=== PATIENT | female | born 1960 | race Caucasian/White ===

== ENCOUNTER 2020-02-08 10:57 | Outpatient (CLI) | payer BC, SELFPAY ==
[2020-02-08 11:22] LABS: Basophils Percent Auto 0.3 % (0.2-1.2); Hematocrit 39.7 % (37.0-47.0); Hemoglobin 12.8 g/dL (12.0-15.0); Immature Granulocyte Absolute 0.01 K/mm3 (0.00-0.031); Immature Granulocyte Percent A 0.3 % (0-0.5); Lymphocytes Absolute Auto 0.21 K/mm3 (0.9-3.2); Lymphocytes Percent Auto 5.8 % (18.3-44.2); Mean Corpuscular HGB Conc 32.2 g/dl (32-36); Mean Corpuscular Hemoglobin 28.9 pg (26-34); Mean Corpuscular Volume 89.6 fl (80-100); Mean Platelet Volume 9.9 fl (7.4-10.4); Monocytes Absolute Auto 0.5 K/mm3 (0.1-0.6); Monocytes Percent Auto 12.8 % (2.6-8.5); Neutrophils Absolute Auto 2.9 K/mm3 (1.3-6.7); Neutrophils Percent Auto 80.8 % (45.5-73.1); Platelet Count Result 244 k/mm3 (150-375); Red Blood Count 4.43 M/mm3 (4.2-5.4); Red Cell Distribution Width 13.8 % (11.5-14.5); White Blood Count 3.6 K/mm3 (4.5-10.0)
[2020-02-08 11:31] LABS: Potassium 3.9 mmol/L (3.4-5.0)
[2020-02-08 11:47] LABS: Alanine Aminotransferase 14 U/L (4-35); Albumin Level 4.5 g/dL (3.5-5.1); Alkaline Phosphatase 76 U/L (38-126); Aspartate Amino Transferase 20 U/L (14-36); Bilirubin,Total 0.6 mg/dL (0.2-1.3); Blood Urea Nitrogen 15 mg/dL (7-17); Calcium 10.1 mg/dL (8.4-10.2); Carbon Dioxide 30 mmol/L (22-30); Chloride 104 mmol/L (98-107); Estimated Glomerular Filt Rate 57; Glucose 94 mg/dL (65-105); Sodium 139 mmol/L (137-145)
[2020-02-08 11:56] LABS: Lithium 0.7 mmol/L (0.6-1.2)
[2020-02-14 00:55] LABS: Carbamazepine Tegretol 2.1 mcg/mL (4.0-12.0)
== END 2020-02-08 10:58 | disposition home or self-care (01) ==
LOC: ANHLAB 11:04
PROVIDERS: PCP Family Medicine
DX: F31.9 Bipolar disorder, unspecified (principal)
CPT/HCPCS: 36415; 80053; 80156; 80178; 85025

== ENCOUNTER 2020-03-20 14:41 | Outpatient (CLI) | payer BC, SELFPAY ==
[2020-03-20 16:02] LABS: Basophils Percent Auto 0.3 % (0.2-1.2); Hematocrit 37.7 % (37.0-47.0); Immature Granulocyte Absolute 0.01 K/mm3 (0.00-0.031); Immature Granulocyte Percent A 0.3 % (0-0.5); Lymphocytes Absolute Auto 0.27 K/mm3 (0.9-3.2); Lymphocytes Percent Auto 8.6 % (18.3-44.2); Mean Corpuscular HGB Conc 31.8 g/dl (32-36); Mean Corpuscular Hemoglobin 29.3 pg (26-34); Mean Platelet Volume 10.1 fl (7.4-10.4); Monocytes Absolute Auto 0.4 K/mm3 (0.1-0.6); Monocytes Percent Auto 13.4 % (2.6-8.5); Neutrophils Absolute Auto 2.4 K/mm3 (1.3-6.7); Neutrophils Percent Auto 77.4 % (45.5-73.1); Platelet Count Result 243 k/mm3 (150-375); Red Cell Distribution Width 14.1 % (11.5-14.5); White Blood Count 3.1 K/mm3 (4.5-10.0)
[2020-03-20 17:19] LABS: Alanine Aminotransferase 11 U/L (4-35); Albumin Level 4.2 g/dL (3.5-5.1); Alkaline Phosphatase 76 U/L (38-126); Aspartate Amino Transferase 17 U/L (14-36); Bilirubin,Total 0.5 mg/dL (0.2-1.3); Blood Urea Nitrogen 15 mg/dL (7-17); Calcium 9.7 mg/dL (8.4-10.2); Carbon Dioxide 30 mmol/L (22-30); Chloride 106 mmol/L (98-107); Estimated Glomerular Filt Rate 57; Glucose 92 mg/dL (65-105); Potassium 4.5 mmol/L (3.4-5.0); Sodium 141 mmol/L (137-145)
[2020-03-20 18:03] LABS: Add Urine Microscopic? YES; Appearance Urine Clear (Clear); Bacteria Urine Trace /hpf; Bilirubin Urine Negative (Negative); Blood Urine Negative (Negative); Color Urine Yellow (Yellow); Glucose Urine UA Negative (Negative); Hyaline Casts Urine 15-19 /lpf; Ketones Urine Trace mg/dL (Negative); Leukocyte Esterase Ur 3+ LEU/UL (Negative); Mucus Urine Heavy /lpf; Nitrate Urine Negative (Negative); Protein Urine 1+ mg/dL (Negative); Specific Grav Ur 1.034 (1.001-1.035); Squamous Epithelial Cell Urine Many /hpf (Few)
== END 2020-03-20 14:42 | disposition home or self-care (01) ==
PROVIDERS: PCP Family Medicine
DX: G35 Multiple sclerosis (principal)
CPT/HCPCS: 36415; 80053; 81001; 85025

== ENCOUNTER 2020-08-25 14:32 | Outpatient (CLI) | payer BC, SELFPAY ==
[2020-08-25 15:41] LABS: Lithium 0.8 mmol/L (0.6-1.2)
[2020-08-29 00:53] LABS: Carbamazepine Tegretol 3.2 mcg/mL (4.0-12.0)
== END 2020-08-25 14:33 | disposition home or self-care (01) ==
PROVIDERS: Anesthesiology; PCP Family Medicine; Visit Provider Dentist
DX: Z01.818 Encounter for other preprocedural examination (principal); Z51.81 Encounter for therapeutic drug level monitoring
CPT/HCPCS: 36415; 80156; 80178

== ENCOUNTER 2020-08-31 01:35 | Outpatient (CLI) | payer BC, SELFPAY ==
[2020-08-31 20:39] LABS: SARS-CoV-2 RNA PCR Negative
== END 2020-08-31 01:36 | disposition home or self-care (01) ==
LOC: ANHCOVIDDT 01:35
PROVIDERS: Internal Medicine Critical Care Medicine; PCP Family Medicine; Visit Provider Dentist
DX: Z01.812 Encounter for preprocedural laboratory examination (principal); Z11.59 Encounter for screening for other viral diseases
CPT/HCPCS: 87635; C9803; U0003

== ENCOUNTER 2020-09-03 00:15 | Day surgery (SDC) | payer BC, SELFPAY ==
[2020-08-20 14:15] VITALS: BMI 36.3
[2020-09-03] VITALS (9 sets, daily range): BP systolic 105–221; BP diastolic 58–110; PULSE 59–73; RESP 10–20; TEMP 36.1–36.3; O2SAT 99–100
--- NOTE | 2020-09-03 08:12 | WPDHPUPDATE1 ---
History and Physical Update Update Date/Time: 09/03/20 08:12 History and Physical has been reviewed, including an updated exam of the patient. There are NO changes in the patient's condition. Risks, benefits, and alternatives have been discussed and questions answered. Patient agrees to proceed with procedure.
--- NOTE | 2020-09-03 08:12 | PM.IMHP ---
H&P: HPI History of Present Illness Date/Time: 09/03/20 08:12 Chief complaint: Dental Caries Narrative: Sagrario Hernandez is a 60 year old female with nonrestorable teeth PMFSH Past Medical History Medical History (Updated 09/03/20 @ 08:13 by Moo Elizalde DMD) Bipolar disorder Hypothyroidism Migraine Multiple sclerosis Family History Family History Father Hypertension Family history of arthritis Mother Family history of malignant neoplasm of skin Social History Social History Smoking status: Never smoker Second hand tobacco smoke exposure: Yes Alcohol intake: never Spiritual care concerns: No Meds Home Medications and Allergies Home Medications Medication Instructions Recorded Confirmed Type levothyroxine 75 mcg capsule 75 mcg PO DAILY #90 cap 06/30/20 09/03/20 Rx carbamazepine 100 mg 200 mg PO DAILY cap 08/12/20 09/03/20 History capsule,extended release [id number] fingolimod 0.5 mg capsule 0.5 mg PO DAILY 08/12/20 09/03/20 History hydroxyzine HCl 25 mg tablet 25 mg PO QID PRN 08/12/20 09/03/20 History lamotrigine 200 mg tablet 200 mg PO BID 08/12/20 09/03/20 History sumatriptan succinate 100 mg tablet See Rx Instructions PO .COMPLEX PRN 08/12/20 09/03/20 History ascorbic acid (vitamin C) [Vitamin 500 mg PO DAILY 08/20/20 09/03/20 History C] biotin 10,000 mcg PO DAILY 08/20/20 09/03/20 History cetirizine [Zyrtec] 10 mg PO DAILY 08/20/20 09/03/20 History cholecalciferol (vitamin D3) 25 mcg PO DAILY 08/20/20 09/03/20 History [Vitamin D3] cyanocobalamin (vitamin B-12) 5,000 mcg SUBLINGUAL DAILY 08/20/20 09/03/20 History [Vitamin B-12] lithium carbonate 150 mg PO QPM 08/20/20 09/03/20 History lithium carbonate 300 mg PO DAILY 08/20/20 09/03/20 History Allergies Allergy/AdvReac Type Severity Reaction Status Date / Time AMOXICILLIN TRIHYDRATE Allergy Unknown Unknown Uncoded 08/20/20 13:56 Reaction POTASSIUM CLAVULANATE Allergy Unknown Unknown Uncoded 08/20/20 13:56 Reaction Assessment and Plan Assessment and plan (1) Non-restorable tooth: Code(s): K08.89 - Other specified disorders of teeth and supporting structures Status: Acute Assessment and Plan: full mouth extractions
[2020-09-03] MEDS: LACTATED RINGERS 1,000 ML 30 ML IV CONT ×2 (08:18→10:30)
--- NOTE | 2020-09-03 08:34 | WPDANESEPPF ---
Anes - Initial Pre Proc Eval Procedure: Operation Date: 09/03/20 09:15 Proposed Procedures p Extraction Of Twenty Teeth - Moo Elizalde DMD Date/Time: 09/03/20 08:34 Surgeon: Moo Elizalde DMD Pre Op Diagnosis: Dental Caries Patient Data Age: 60 Gender: F Height: 5 ft 6 in Weight: 100.7 kg Last Vital Signs Temp 36.3 C L 09/03/20 08:20 Pulse 59 L 09/03/20 08:20 BP 150/76 H 09/03/20 08:20 Pulse Ox 100 09/03/20 08:20 Allergies Allergy/AdvReac Type Severity Reaction Status Date / Time AMOXICILLIN TRIHYDRATE Allergy Unknown Unknown Uncoded 08/20/20 13:56 Reaction POTASSIUM CLAVULANATE Allergy Unknown Unknown Uncoded 08/20/20 13:56 Reaction Home Medications Medication Instructions Recorded Confirmed Type levothyroxine 75 mcg capsule 75 mcg PO DAILY #90 cap 06/30/20 09/03/20 Rx carbamazepine 100 mg 200 mg PO DAILY cap 08/12/20 09/03/20 History capsule,extended release [id number] fingolimod 0.5 mg capsule 0.5 mg PO DAILY 08/12/20 09/03/20 History hydroxyzine HCl 25 mg tablet 25 mg PO QID PRN 08/12/20 09/03/20 History lamotrigine 200 mg tablet 200 mg PO BID 08/12/20 09/03/20 History sumatriptan succinate 100 mg tablet See Rx Instructions PO .COMPLEX PRN 08/12/20 09/03/20 History ascorbic acid (vitamin C) [Vitamin 500 mg PO DAILY 08/20/20 09/03/20 History C] biotin 10,000 mcg PO DAILY 08/20/20 09/03/20 History cetirizine [Zyrtec] 10 mg PO DAILY 08/20/20 09/03/20 History cholecalciferol (vitamin D3) 25 mcg PO DAILY 08/20/20 09/03/20 History [Vitamin D3] cyanocobalamin (vitamin B-12) 5,000 mcg SUBLINGUAL DAILY 08/20/20 09/03/20 History [Vitamin B-12] lithium carbonate 150 mg PO QPM 08/20/20 09/03/20 History lithium carbonate 300 mg PO DAILY 08/20/20 09/03/20 History Patient hx anesthesia problems: none Family hx anesthesia problems: none PMFSH Past Medical History Medical History Bipolar disorder Hypothyroidism Migraine Multiple sclerosis Family History Family History Father Hypertension Family history of arthritis Mother Family history of malignant neoplasm of skin Social History Social History Smoking status: Never smoker Second hand tobacco smoke exposure: Yes Alcohol intake: never Spiritual care concerns: No Anes - Eval Final PreProcedure Day of Procedure 09/03/20 08:34 Patient weight: obese Heart: regular rate and rhythm Lungs: clear to auscultation Airway: Mallampati scale class II Neurological: alert and oriented Last oral intake: >/= 8 hours ASA classification: III Emergent: no Anesthetic plan: proceed Anesthesia type and monitoring: general ETT and standard monitoring Informed Consent: The patient's anesthetic plan and its attendant risks and benefits were discussed with the patient/family/POA. Questions were solicited and answers provided to the satisfaction of the patient/family/POA.
[2020-09-03] MEDS: OXYMETAZOLINE HCL 0.05% NAS 15 ML BTL (*BKC) 2 SPRAY NASAL ×2 (09:02→09:03)
[2020-09-03] MEDS: LIDOCAINE 2%-EPI (FOR DENTAL BLOCK) 1.7 ML CARTRIDGE INFILTRATE (09:35)
--- NOTE | 2020-09-03 10:16 | SUR.OPER ---
EBL:20cc
--- NOTE | 2020-09-03 10:27 | PM.PROC ---
Procedure Note - Detailed Date of procedure: 09/03/20 Pre-op diagnosis: Dental Caries Surgeon: Desiree Roblero of the anesthesia service who induced a general anesthetic. Patient was draped in the usual manner for an intraoral surgical procedure. Oral cavity was suctioned free of debris and throat pack was placed. Local anesthetic administered totaling 5cc. Fifteen blade was used to make a sulcular incision in the maxilla and a full-thickness flaps elevated to the buccal. All remaining maxillary teeth removed using elevator and forceps technique without complication. Sockets curetted free of debris and irrigated with copious amounts of sterile saline. Alveoloplasty was completed and the wound was irrigated again. Tissue was closed using 4 0 chromic gut suture in interrupted and continuous fashion. Attention was turned to the mandible where an incision was made around the necks of the teeth and a full-thickness flaps elevated to the buccal. All teeth removed using a forceps technique without complication. Alveoloplasty was completed using a rongeur. Wound was irrigated and then closed using 4 0 chromic gut suture in interrupted fashion. Oral cavity was suctioned free of debris and throat pack was removed. Because pack placed. Care the patient was turned to the anesthesia service who extubated the patient transferred to recovery in stable condition. Estimated blood loss 20cc complications none. Preoperative diagnosis nonabsorbable dentition. Postop diagnosis same.
[2020-09-03] MEDS: hydrALAZINE HCL 20 MG/ML VIAL 5 MG IV PUSH (11:42)
--- NOTE | 2020-09-03 11:44 | SUR.PHASEII ---
BP ELEVATED 220/110, TAKEN MANUALLY; DR. CASON NOTIFIED WHO ORDERED 5 MG HYDRALAZINE IVP. PT DENIES BOLDEN. ALERT, ORIENTED X 3.
--- NOTE | 2020-09-03 11:56 | SUR.PHASEII ---
[employer]; FEET STRENGTH. NO FACIAL ASSYMETRY.
--- NOTE | 2020-09-03 12:19 | SUR.PHASEII ---
DR CASON AWARE OF BP 187/76 & HR 65. DR CASON STATES PT MAY BE DISCHARGED HOME. PT MEETS ANESTHESIA DISCHARGE CRITERIA.
== END 2020-09-03 12:40 | disposition home or self-care (01) ==
PROVIDERS: PCP Family Medicine; Visit Provider Dentist
PROC: (CPT 41899; principal; 2020-09-03 09:15)
DX: K02.9 Dental caries, unspecified (principal); E03.9 Hypothyroidism, unspecified; G35 Multiple sclerosis; F31.9 Bipolar disorder, unspecified; E66.9 Obesity, unspecified; Z68.35 Body mass index [BMI] 35.0-35.9, adult
CPT/HCPCS: 41874 ×4; 41899; A9270; J0330; J0360; J1100; J2250; J2405; J2704; J3010; J7120

== ENCOUNTER 2020-09-26 00:59 | Outpatient (CLI) | payer BC, SELFPAY ==
[2020-09-26 19:14] LABS: SARS-CoV-2 RNA PCR Negative
== END 2020-09-26 01:00 | disposition home or self-care (01) ==
LOC: ANHCOVIDDT 00:59
PROVIDERS: PCP Family Medicine; Visit Provider Internal Medicine Critical Care Medicine
DX: Z20.828 Contact with and (suspected) exposure to other viral communicable diseases (principal)
CPT/HCPCS: 87635; C9803; U0003

== ENCOUNTER 2020-09-29 07:45 | Outpatient (CLI) | payer BC, SELFPAY ==
--- NOTE | 2020-11-12 13:00 | WPDSLEEPSTUD ---
Sleep Study Date of Study: 09/29/20 Ordering Provider: Dr.Laura Molina Interpreting Physician: Sleep Study Type: Polysomnogram Height: 1.68 m Weight: 97.069 kg Body Mass Index: 34.5 Neck Circumference: 38.1 cm [place]: 18 Reason for Sleep Study Non refreshing sleep, daytime sleepiness and fatigue. Patient has comorbid conditions of depression and anxiety. Sleep History Non refreshing sleep and severe daytime hypersomnolence. PMFSH Past Medical History Medical History Bipolar disorder Hypothyroidism Migraine Multiple sclerosis Family History Family History Father Hypertension Family history of arthritis Mother Family history of malignant neoplasm of skin Social History Social History Smoking status: Never smoker Second hand tobacco smoke exposure: Yes Alcohol intake: never Spiritual care concerns: No Medications Home Medications Medication Instructions Recorded Confirmed Type carbamazepine 100 mg 200 mg PO DAILY cap 08/12/20 09/03/20 History capsule,extended release [id number] fingolimod 0.5 mg capsule 0.5 mg PO DAILY 08/12/20 09/03/20 History hydroxyzine HCl 25 mg tablet 25 mg PO QID PRN 08/12/20 09/03/20 History lamotrigine 200 mg tablet 200 mg PO BID 08/12/20 09/03/20 History sumatriptan succinate 100 mg tablet See Rx Instructions PO .COMPLEX PRN 08/12/20 09/03/20 History ascorbic acid (vitamin C) [Vitamin 500 mg PO DAILY 08/20/20 09/03/20 History C] biotin 10,000 mcg PO DAILY 08/20/20 09/03/20 History cetirizine [Zyrtec] 10 mg PO DAILY 08/20/20 09/03/20 History cholecalciferol (vitamin D3) 25 mcg PO DAILY 08/20/20 09/03/20 History [Vitamin D3] cyanocobalamin (vitamin B-12) 5,000 mcg SUBLINGUAL DAILY 08/20/20 09/03/20 History [Vitamin B-12] lithium carbonate 150 mg PO QPM 08/20/20 09/03/20 History lithium carbonate 300 mg PO DAILY 08/20/20 09/03/20 History levothyroxine 75 mcg capsule 75 mcg PO DAILY #90 cap 09/28/20 Rx Sleep Procedure overnight polysomnographic study Sleep Architecture total recording time 399 minutes, total sleep time 344 minutes, sleep efficiency 86.4 minutes, sleep latency 2.4 minutes, REM latency 91 minutes. Wake after sleep onset 52 minutes, stage N1 6.4%, N2 76.8%, N3 0%, REM sleep 16.8%. Supine sleep 96.5%, supine REM 14.2%. Respiratory Analysis AASM criteria used. Patient had 6 apneas, 1 obstructive and 5 centrals apnea index 1.0. There were 26 hypopneas with a hypopnea index of 4.5. Apnea-hypopnea index 5.6. Supine index 5.8, nonsupine index 0 REM index 18.6 non-REM index 2.9. Arousals Total arousals 84 with index of 12.6, spontaneous arousals 58, snores arousals 8, hypopnea arousals 5. Periodic Limb Movements Ninety-five leg movements with index of 16.5, 13 arousals with index of 2.0. There were no PLMS. Oximetry Data mean oxygen saturation 94, lowest saturation 88,SaO2<90-1.0Min Snoring Profile mild intermittent snoring. Cardiac Profile Normal sinus rhythm, mean heart rate 54, range 42 to 87 beats per minute. EEG Profile unremarkable EEG. Assessment and Plan Additional Plan this study shows presence of mild sleep disordered breathing with predominance during REM sleep. The patient did not qualify for a split night study. the patient reports very severe daytime sleepiness and has an [place] score of 18/24. given this severe hypersomnia it would be appropriate to consider a trial of CPAP therapy in this patient. If her sleep disorder is appropriately treated and the patient continues to have severe hypersomnolence, consideration should be given for a coexisting condition of central hypersomnolence. And the patient may require multiple sleep latency test to rule out possibility of narcolepsy or idiopathic hypersomnia.
[2020-11-12 13:24] VITALS: BMI 34.5
== END 2020-09-29 07:46 | disposition home or self-care (01) ==
LOC: ANHCSM 07:47
PROVIDERS: PCP Family Medicine; Visit Provider Family Medicine
DX: G47.33 Obstructive sleep apnea (adult) (pediatric) (principal)
CPT/HCPCS: 95810

== ENCOUNTER 2020-11-04 12:45 | Outpatient (CLI) | payer BC, SELFPAY ==
[2020-11-04 13:33] LABS: Alanine Aminotransferase 17 U/L (4-35); Albumin Level 4.4 g/dL (3.5-5.1); Alkaline Phosphatase 78 U/L (38-126); Anion Gap 3 mmol/L (8-16); Aspartate Amino Transferase 22 U/L (14-36); Bilirubin,Total 0.5 mg/dL (0.2-1.3); Blood Urea Nitrogen 15 mg/dL (7-17); Carbon Dioxide 33 mmol/L (22-30); Chloride 105 mmol/L (98-107); Estimated Glomerular Filt Rate > 60; Glucose 99 mg/dL (65-105); Potassium 4.4 mmol/L (3.4-5.0); Sodium 141 mmol/L (137-145)
[2020-11-04 16:10] LABS: Lithium 0.5 mmol/L (0.6-1.2)
[2020-11-07 05:35] LABS: Carbamazepine Tegretol 3.9 mcg/mL (4.0-12.0)
== END 2020-11-04 12:46 | disposition home or self-care (01) ==
PROVIDERS: PCP Family Medicine
DX: F31.9 Bipolar disorder, unspecified (principal)
CPT/HCPCS: 36415; 80053; 80156; 80178

== ENCOUNTER 2020-11-05 12:06 | Outpatient (CLI) | payer BC, SELFPAY ==
[2020-11-05 12:44] LABS: Basophils Percent Auto 0.3 % (0.2-1.2); Hematocrit 37.1 % (37.0-47.0); Hemoglobin 12.1 g/dL (12.0-15.0); Immature Granulocyte Absolute 0.01 K/mm3 (0.00-0.031); Immature Granulocyte Percent A 0.3 % (0-0.5); Lymphocytes Absolute Auto 0.33 K/mm3 (0.9-3.2); Lymphocytes Percent Auto 9.7 % (18.3-44.2); Mean Corpuscular HGB Conc 32.6 g/dl (32-36); Mean Corpuscular Hemoglobin 29.2 pg (26-34); Mean Corpuscular Volume 89.4 fl (80-100); Mean Platelet Volume 9.8 fl (7.4-10.4); Monocytes Absolute Auto 0.5 K/mm3 (0.1-0.6); Monocytes Percent Auto 15.3 % (2.6-8.5); Neutrophils Absolute Auto 2.5 K/mm3 (1.3-6.7); Neutrophils Percent Auto 74.4 % (45.5-73.1); Platelet Count Result 245 k/mm3 (150-375); Red Blood Count 4.15 M/mm3 (4.2-5.4); Red Cell Distribution Width 13.5 % (11.5-14.5); White Blood Count 3.4 K/mm3 (4.5-10.0)
== END 2020-11-05 12:07 | disposition home or self-care (01) ==
PROVIDERS: PCP Family Medicine
DX: F31.9 Bipolar disorder, unspecified (principal)
CPT/HCPCS: 36415; 85025

== ENCOUNTER 2021-05-18 15:48 | Outpatient (CLI) | payer BC, SELFPAY | END 2021-05-18 15:49 | disposition home or self-care (01) | LOC: ANHLAB 15:49 | PROVIDERS: PCP Family Medicine; Visit Provider Internal Medicine Critical Care Medicine | DX: G25.81 Restless legs syndrome (principal) | CPT/HCPCS: 36415; 82728 ==

== ENCOUNTER 2021-07-27 14:04 | Outpatient (CLI) | payer BC, SELFPAY ==
[2021-07-27 14:52] LABS: Basophils Percent Auto 0.2 % (0.2-1.2); Hematocrit 39.1 % (37.0-47.0); Immature Granulocyte Absolute 0.02 K/mm3 (0.00-0.031); Immature Granulocyte Percent A 0.4 % (0-0.5); Lymphocytes Absolute Auto 0.32 K/mm3 (0.9-3.2); Lymphocytes Percent Auto 6.4 % (18.3-44.2); Mean Corpuscular HGB Conc 33.2 g/dl (32-36); Mean Corpuscular Hemoglobin 30.1 pg (26-34); Mean Corpuscular Volume 90.5 fl (80-100); Mean Platelet Volume 9.8 fl (7.4-10.4); Monocytes Absolute Auto 0.6 K/mm3 (0.1-0.6); Neutrophils Absolute Auto 4.1 K/mm3 (1.3-6.7); Platelet Count Result 236 k/mm3 (150-375); Red Blood Count 4.32 M/mm3 (4.2-5.4); Red Cell Distribution Width 13.6 % (11.5-14.5)
[2021-07-27 15:07] LABS: Alanine Aminotransferase 23 U/L (4-35); Albumin Level 4.7 g/dL (3.5-5.1); Alkaline Phosphatase 92 U/L (38-126); Anion Gap 9 mmol/L (8-16); Aspartate Amino Transferase 37 U/L (14-36); Bilirubin,Total 0.4 mg/dL (0.2-1.3); Blood Urea Nitrogen 14 mg/dL (7-17); Calcium 9.9 mg/dL (8.4-10.2); Carbon Dioxide 26 mmol/L (22-30); Chloride 105 mmol/L (98-107); Estimated Glomerular Filt Rate > 60; Glucose 100 mg/dL (65-110); Potassium 4.1 mmol/L (3.4-5.0); Sodium 140 mmol/L (137-145)
[2021-07-27 15:37] LABS: Lithium 0.7 mmol/L (0.6-1.2)
[2021-08-01 11:24] LABS: Carbamazepine Tegretol 3.8 mcg/mL (4.0-12.0)
== END 2021-07-27 14:05 | disposition home or self-care (01) ==
LOC: ANHLAB 14:08
PROVIDERS: PCP Family Medicine
DX: F31.9 Bipolar disorder, unspecified (principal)
CPT/HCPCS: 36415; 80053; 80156; 80178; 85025

== ENCOUNTER 2021-08-21 13:00 | Outpatient (CLI) | payer BC, SELFPAY ==
[2021-08-21 13:25] LABS: Basophils Percent Auto 0.5 % (0.2-1.2); Hematocrit 36.7 % (37.0-47.0); Hemoglobin 11.9 g/dL (12.0-15.0); Immature Granulocyte Absolute 0.03 K/mm3 (0.00-0.031); Immature Granulocyte Percent A 0.8 % (0-0.5); Lymphocytes Absolute Auto 0.24 K/mm3 (0.9-3.2); Lymphocytes Percent Auto 6.4 % (18.3-44.2); Mean Corpuscular HGB Conc 32.4 g/dl (32-36); Mean Corpuscular Hemoglobin 30.1 pg (26-34); Mean Corpuscular Volume 92.9 fl (80-100); Mean Platelet Volume 9.3 fl (7.4-10.4); Monocytes Absolute Auto 0.5 K/mm3 (0.1-0.6); Monocytes Percent Auto 13.1 % (2.6-8.5); Neutrophils Percent Auto 79.2 % (45.5-73.1); Platelet Count Result 225 k/mm3 (150-375); Red Blood Count 3.95 M/mm3 (4.2-5.4); Red Cell Distribution Width 14.2 % (11.5-14.5); White Blood Count 3.7 K/mm3 (4.5-10.0)
[2021-08-21 13:39] LABS: Alanine Aminotransferase 16 U/L (4-35); Albumin Level 4.1 g/dL (3.5-5.1); Alkaline Phosphatase 76 U/L (38-126); Anion Gap 5 mmol/L (8-16); Aspartate Amino Transferase 18 U/L (14-36); Bilirubin,Total 0.4 mg/dL (0.2-1.3); Blood Urea Nitrogen 14 mg/dL (7-17); Calcium 9.4 mg/dL (8.4-10.2); Carbon Dioxide 29 mmol/L (22-30); Chloride 107 mmol/L (98-107); Estimated Glomerular Filt Rate > 60; Glucose 96 mg/dL (65-110); Sodium 141 mmol/L (137-145)
[2021-08-21 13:53] LABS: Lithium 0.6 mmol/L (0.6-1.2)
== END 2021-08-21 13:01 | disposition home or self-care (01) ==
LOC: ANHLAB 13:06
PROVIDERS: PCP Family Medicine
DX: F31.9 Bipolar disorder, unspecified (principal)
CPT/HCPCS: 36415; 80053; 80178; 85025

== ENCOUNTER → 2021-11-06 07:38 | Outpatient (CLI) | payer BC, SELFPAY ==
[2021-11-06 17:30] LABS: Influenza A QL RT-PCR Negative (Negative); Influenza B QL RT-PCR Negative (Negative); SARS-CoV-2 RNA PCR Negative
== END ==
PROVIDERS: PCP Family Medicine; Visit Provider Physician Assistant
DX: R50.9 Fever, unspecified (principal); Z20.822 Contact with and (suspected) exposure to COVID-19
CPT/HCPCS: 87502; 87804; C9803; U0003; U0005

== ENCOUNTER 2022-01-21 17:08 | Outpatient (CLI) | payer BC, SELFPAY ==
[2022-01-21 17:40] LABS: Anion Gap 5 mmol/L (8-16); Blood Urea Nitrogen 17 mg/dL (7-17); Calcium 10.1 mg/dL (8.4-10.2); Carbon Dioxide 30 mmol/L (22-30); Chloride 105 mmol/L (98-107); Estimated Glomerular Filt Rate 57; Glucose 114 mg/dL (65-110); Potassium 4.5 mmol/L (3.4-5.0); Sodium 140 mmol/L (137-145)
== END 2022-01-21 17:09 | disposition home or self-care (01) ==
PROVIDERS: PCP Family Medicine
DX: G35 Multiple sclerosis (principal)
CPT/HCPCS: 36415; 80048

== ENCOUNTER 2022-02-18 14:10 | Outpatient (CLI) | payer BC, SELFPAY ==
[2022-02-18 14:39] LABS: Basophils Percent Auto 0.3 % (0.2-1.2); Hemoglobin 12.5 g/dL (12.0-15.0); Immature Granulocyte Absolute 0.03 K/mm3 (0.00-0.031); Immature Granulocyte Percent A 0.9 % (0-0.5); Lymphocytes Absolute Auto 0.27 K/mm3 (0.9-3.2); Lymphocytes Percent Auto 8.2 % (18.3-44.2); Mean Corpuscular HGB Conc 32.1 g/dl (32-36); Mean Corpuscular Hemoglobin 29.6 pg (26-34); Mean Corpuscular Volume 92.4 fl (80-100); Mean Platelet Volume 9.3 fl (7.4-10.4); Monocytes Absolute Auto 0.5 K/mm3 (0.1-0.6); Monocytes Percent Auto 13.9 % (2.6-8.5); Neutrophils Absolute Auto 2.5 K/mm3 (1.3-6.7); Neutrophils Percent Auto 76.7 % (45.5-73.1); Platelet Count Result 220 k/mm3 (150-375); Red Blood Count 4.22 M/mm3 (4.2-5.4); White Blood Count 3.3 K/mm3 (4.5-10.0)
[2022-02-18 15:02] LABS: Alanine Aminotransferase 16 U/L (4-35); Albumin Level 4.3 g/dL (3.5-5.1); Alkaline Phosphatase 71 U/L (38-126); Anion Gap 4 mmol/L (8-16); Aspartate Amino Transferase 21 U/L (14-36); Bilirubin,Total 0.4 mg/dL (0.2-1.3); Blood Urea Nitrogen 15 mg/dL (7-17); Calcium 9.2 mg/dL (8.4-10.2); Carbon Dioxide 28 mmol/L (22-30); Chloride 108 mmol/L (98-107); Estimated Glomerular Filt Rate 57; Glucose 92 mg/dL (65-110); Potassium 4.2 mmol/L (3.4-5.0); Sodium 140 mmol/L (137-145)
[2022-02-18 15:17] LABS: Lithium 0.6 mmol/L (0.6-1.2)
[2022-02-23 00:39] LABS: Carbamazepine Tegretol 3.1 mcg/mL (4.0-12.0)
== END 2022-02-18 14:11 | disposition home or self-care (01) ==
PROVIDERS: PCP Family Medicine
DX: F31.9 Bipolar disorder, unspecified (principal)
CPT/HCPCS: 36415; 80053; 80156; 80178; 85025

== ENCOUNTER 2022-12-12 14:20 | Outpatient (CLI) | payer OTHER, SELFPAY ==
--- NOTE | 2022-12-12 14:48 | ECG_ITS ---
Measurements Intervals [place] Rate: 55 P: 65 MN: 195 QRS: 48 QRSD: 98 T: 38 QT: 444 QTc: 428 Interpretive Statements SINUS BRADYCARDIA OTHERWISE NORMAL ECG NO PREVIOUS ECG AVAILABLE FOR COMPARISON Electronically Signed On 12-13-2022 14:07:44 [employer] by Anam Mtz M.D.
[2022-12-12 15:13] LABS: Basophils Percent Auto 0.3 % (0.2-1.2); Hematocrit 35.2 % (37.0-47.0); Hemoglobin 11.4 g/dL (12.0-15.0); Immature Granulocyte Absolute 0.01 K/mm3 (0.00-0.031); Immature Granulocyte Percent A 0.3 % (0-0.5); Lymphocytes Absolute Auto 0.26 K/mm3 (0.9-3.2); Lymphocytes Percent Auto 8.1 % (18.3-44.2); Mean Corpuscular HGB Conc 32.4 g/dl (32-36); Mean Corpuscular Hemoglobin 30.6 pg (26-34); Mean Corpuscular Volume 94.6 fl (80-100); Mean Platelet Volume 10.4 fl (7.4-10.4); Monocytes Absolute Auto 0.5 K/mm3 (0.1-0.6); Monocytes Percent Auto 16.6 % (2.6-8.5); Neutrophils Absolute Auto 2.4 K/mm3 (1.3-6.7); Neutrophils Percent Auto 74.7 % (45.5-73.1); Platelet Count Result 217 k/mm3 (150-375); Red Blood Count 3.72 M/mm3 (4.2-5.4); Red Cell Distribution Width 14.4 % (11.5-14.5); White Blood Count 3.2 K/mm3 (4.5-10.0)
[2022-12-12 15:25] LABS: Alanine Aminotransferase 13 U/L (6-35); Albumin Level 4.3 g/dL (3.5-5.1); Alkaline Phosphatase 66 U/L (38-126); Anion Gap 4 mmol/L (8-16); Aspartate Amino Transferase 16 U/L (14-36); Bilirubin,Total 0.4 mg/dL (0.2-1.3); Blood Urea Nitrogen 11 mg/dL (7-17); Calcium 9.6 mg/dL (8.4-10.2); Carbon Dioxide 29 mmol/L (22-30); Chloride 103 mmol/L (98-107); Estimated Glomerular Filt Rate > 60; Glucose 90 mg/dL (65-110); Sodium 136 mmol/L (137-145)
[2022-12-12 15:34] LABS: Lithium 0.7 mmol/L (0.6-1.2)
[2022-12-15 09:32] LABS: Carbamazepine Tegretol 3.3 mcg/mL (4.0-12.0)
== END 2022-12-12 14:21 | disposition home or self-care (01) ==
PROVIDERS: PCP Family Medicine
DX: Z51.81 Encounter for therapeutic drug level monitoring (principal); F31.9 Bipolar disorder, unspecified; R00.1 Bradycardia, unspecified
CPT/HCPCS: 36415; 80053; 80156; 80178; 85025; 93005

== ENCOUNTER 2023-05-30 13:22 | Emergency (ER) | payer OTHER, SELFPAY ==
--- NOTE | ~2023-05-30 | XR_ITS ---
EXAMINATION: [id number] DATE: 05/30/2023 14:26 INDICATION: Neck and right arm pain. TECHNIQUE: 3 views of cervical spine were obtained. COMPARISON: CT cervical spine 04/13/2016 FINDINGS: There is kyphosis of lower cervical spine. There is 9 degrees levocurvature of cervicothora cic spine. Vertebral body heights are normal. There is mildly decreased disc height at C5-C6, severel y decreased disc height at C6-C7, and mildly decreased disc height at C7-T1. There is multilevel bill re facet joint osteoarthritis. There is mild central canal stenosis at C5-C6 and C6-C7. No prevertebr al soft tissue swelling. IMPRESSION: 1. Severe cervical spondylosis. Reviewed, dictated and finalized at location A.
[2023-05-30 13:36] VITALS: BP 161/74; PULSE 57; RESP 18; TEMP 36.3; O2SAT 100
--- NOTE | 2023-05-30 14:15 | ED.GENADULT ---
HPI - General Adult General Chief complaint: Neck Pain/Injury Stated complaint: NECK PAIN Time Seen by Provider: 05/30/23 13:52 Source: patient, RN notes reviewed and old records reviewed Mode of arrival: ambulatory Limitations: no limitations History of Present Illness HPI narrative: 63 year old female who presents to [facility] with complaints of neck pain for the past 1 month duration with some radiation down right arm to below elbow. Patient reports that for the past 3-4 days pain has increased in intensity and increased with movement. Patient reports no known injury to her neck, states she does sit playing games on phone and on computer daily. Patient does have history of Multiple Sclerosis. Patient reports that she has taken Aleve and Ibuprofen for her discomfort. Patient has full ROM of upper extremities pain does radiate at times down right arm to below elbow, pulses strong to right arm, states occasional tingling right arm. MD complaint: neck pain Onset (ago): month(s) (1 with increased pain for 3-4 days) Related Data Home Medications Medication Instructions Recorded Confirmed carbamazepine 100 mg 200 mg PO DAILY 08/12/20 05/30/23 capsule,extended release [id number] fingolimod 0.5 mg capsule (Gilenya) 0.5 mg PO DAILY 08/12/20 05/30/23 lamotrigine 200 mg tablet 200 mg PO BID 08/12/20 05/30/23 (Lamictal) ascorbic acid (vitamin C) 500 mg 500 mg PO DAILY 08/20/20 05/30/23 tablet (Vitamin C) biotin 10,000 mcg capsule 10,000 mcg PO DAILY 08/20/20 05/30/23 cetirizine 10 mg tablet (Zyrtec) 10 mg PO DAILY 08/20/20 05/30/23 cholecalciferol (vitamin D3) 25 25 mcg PO DAILY 08/20/20 05/30/23 mcg (1,000 unit) tablet (Vitamin D3) cyanocobalamin (vitamin B-12) 5,000 mcg sublingual DAILY 08/20/20 05/30/23 5,000 mcg sublingual tablet (Vitamin B-12) lithium carbonate 150 mg capsule 150 mg PO QPM 08/20/20 05/30/23 lithium carbonate 300 mg capsule 300 mg PO QAM 02/16/21 05/30/23 hydroxyzine HCl 25 mg tablet 50 mg PO BID 05/19/21 05/30/23 buspirone 7.5 mg tablet 15 mg PO BID 02/15/22 05/30/23 Allergies Allergy/AdvReac Type Severity Reaction Status Date / Time amoxicillin [From Augmentin] Allergy Unknown Unknown Verified 05/30/23 13:26 clavulanic acid Allergy Unknown Unknown Verified 05/30/23 13:26 [From Augmentin] Review of Systems Review of Systems: CONSTITUTIONAL: Denies fever, chills, or sweats. CARDIOVASCULAR: Denies chest pain, palpitations, or edema. RESPIRATORY: Denies cough or dyspnea. GASTROINTESTINAL: Denies abdominal pain, nausea, vomiting, or diarrhea. GENITOURINARY: Denies dysuria or hematuria. SKIN: Denies rash or itching. MUSCULOSKELETAL: Reports neck pain right side with radiation down right arm to below elbow. NEUROLOGIC: Denies headache, numbness, or weakness, reports some tingling right arm intermittently All systems reviewed & are unremarkable except as noted in HPI and below PMFSH Past Medical History Medical History Bipolar disorder Hypothyroidism Migraine Multiple sclerosis Obstructive sleep apnea Restless leg syndrome Surgical History Surgical History H/O: hysterectomy Family History Family History Father Hypertension Family history of arthritis Mother Family history of malignant neoplasm of skin Social History Social History Smoking status: Never smoker Second hand tobacco smoke exposure: Yes Alcohol intake: never Substance use: never Substance use type: does not use Lack of Transportation: No Lack of Food: Never True Current Housing: I Have Housing Concerned About Future Housing: No Difficulty Paying Gas/Electric Bills: No Difficulty Paying for Meds: No Currently Unemployed: No Education: High School Diploma/GED Dif
== END 2023-05-30 15:03 | disposition home or self-care (01) ==
PROVIDERS: Emergency Provider Registered Nurse; PCP Family Medicine
DX: M47.812 Spondylosis without myelopathy or radiculopathy, cervical region (principal); E03.9 Hypothyroidism, unspecified; G35 Multiple sclerosis; G25.81 Restless legs syndrome; F31.9 Bipolar disorder, unspecified
CPT/HCPCS: 72040; 99213; G0463

== ENCOUNTER 2023-08-09 15:35 | Outpatient (CLI) | payer OTHER, SELFPAY ==
[2023-08-09 18:58] LABS: Lithium 0.5 mmol/L (0.6-1.2)
[2023-08-13 14:43] LABS: Carbamazepine Tegretol 3.7 mcg/mL (4.0-12.0)
== END 2023-08-09 15:36 | disposition home or self-care (01) ==
LOC: ANHGOSHLAB 15:38
PROVIDERS: PCP Family Medicine
DX: F31.9 Bipolar disorder, unspecified (principal)
CPT/HCPCS: 36415; 80156; 80178

== ENCOUNTER 2023-08-29 12:30 | Outpatient (RCR) | payer OTHER, SELFPAY ==
--- NOTE | 2023-06-06 16:02 | OPREHPOC ---
Outpatient Therapy Plan of Care This is a Multidisciplinary Plan of Care that may contain components documented by all disciplines (PT, OT, and ST.) PT Problem 1 PT Problem #1 Knowledge Deficit PT Goal 1 Goal Pt to be IND with issued HEP Target Visit 8 PT Problem 2 PT Problem #2 Impaired Gait PT Goal 1 Goal Pt to improve 2 min walk distance from 315ft to 400ft. Target Visit 8 PT Goal 2 Goal Pt to score 18/24 on the DGI Target Visit 8 PT Problem 3 PT Problem #3 Impaired Strength PT Goal 1 Goal Pt to improve hip strength to grossly 4/5 Target Visit 8 PT Goal 2 Goal Pt to improve 5xSTS from 17s to 14s Target Visit 8 PT Problem 4 PT Problem #4 Impaired Balance PT Goal 1 Goal Pt to improve FARRAR score from 40/56 to 50/56 Target Visit 8 PT Goal 2 Goal Pt to be able to ambulate a flight of stairs with any single UE support Target Visit 8 PT Problem 5 PT Problem #5 Impaired Safety Awareness PT Goal 1 Goal Pt to report no falls in the last month Target Visit 8
--- NOTE | 2023-06-06 16:02 | PTOPEVAL1 ---
Assessment and note entered by Ananth Dawn, PT, DPT Evaluation Information Assessment Status Evaluation Diagnosis MS, gait disturbances Onset 25 years Subjective Information Pt states she has had an MS diagnosis for 25 years without many deficits. She states in the last year or so she has noticed a steady decline. She states about last year she had a 1-2 month time frame where she fell often. She declines a fall in the last 6 months. She reports memory issues. She states she needs to get better at stairs and walking down an incline to be able to walk her driveway without assist. Reported Pain Level Pain Score 0: Self Report Assessment PT Clinical Summary Sagrario presents to therapy today for her initial evaluation with a diagnosis of MS and gait disturbances. Today she demonstrates decreased BLE strength, decreased gait speed, and an impaired gait pattern. She demonstrates scores during the 2min walk test, 5xSTS, and FARRAR that place her at an increased risk of falls. Skilled physical therapy services are indicated to address the deficits noted above, to improve balance, and to minimize fall risk. Plan of Care Interventions Gait Training,Manual Therapy,Neuro Re-education, Patient/Caregiver Educati,Therapeutic Activities, Therapeutic Exercise PT Services Indicated Yes Treatment Frequency and 2x/wk for 8 visits Duration These treatments will address the objective and functional deficits as defined above. The patient will be advanced safely and appropriately in order for the patient to progress towards his/her prior level of function. Additional exercises will be introduced and as well as a comprehensive home exercise program upon discharge, if needed, ?to ensure carryover of functional gains achieved in the clinic. This treatment plan has been reviewed and agreement upon by the patient.
--- NOTE | 2023-06-09 14:24 | PCPTNOTE ---
Patient was No Show for today's appointment. Front office contacted them and cancellation was made.
--- NOTE | 2023-06-21 13:04 | PCPTNOTE ---
Pt cancelled due to illness.
--- NOTE | 2023-07-04 16:36 | PTOPPROG ---
Assessment and note entered by Ananth Dawn, PT, DPT Evaluation Information Assessment Status Progress Diagnosis MS, gait disturbances Onset 25 years Subjective Information Pt states she is improving but still has room for improvement. She states she still needs to work on her balance, gait, and endurance. Assessment PT Clinical Summary Sagrario presents to therapy today for her progress report following 6 visits to treat her diagnosis of MS and gait disturbances. Today she demonstrates improvements in her gait speed, FARRAR balance score, and 5xSTS time, she made no improvement on the DGI. Per standardized testing she still remains at an increased risk for falls. Continuation of skilled physical therapy services are indicated to address the deficits noted above, to continue progressing towards goals, to improve balance, and to minimize fall risk. Plan of Care Interventions Gait Training,Manual Therapy,Neuro Re-education, Patient/Caregiver Educati,Therapeutic Activities, Therapeutic Exercise PT Services Indicated Yes Treatment Frequency and 2x/wk for 8 visits Duration These treatments will address the objective and functional deficits as defined above. The patient will be advanced safely and appropriately in order for the patient to progress towards his/her prior level of function. Additional exercises will be introduced and as well as a comprehensive home exercise program upon discharge, if needed, ?to ensure carryover of functional gains achieved in the clinic. This treatment plan has been reviewed and agreement upon by the patient.
--- NOTE | 2023-07-19 12:30 | PCPTNOTE ---
Patient called to cancel appointment.
--- NOTE | 2023-08-01 14:57 | PTOPPROG ---
Assessment and note entered by Ananth Dawn, PT, DPT Evaluation Information Assessment Status Progress Diagnosis MS, gait disturbances Onset 25 years Subjective Information Pt states she feels like she is doing okay, but feels like she has a lot of need for more improvement. She feels like her balance is still her greatest deficits. Assessment PT Clinical Summary Sagrario presents to therapy today for her progress report following 14 visits to treat her diagnosis of MS and gait disturbances. Today she demonstrates improvements in her gait speed and FARRAR balance score, she made minimal progress during the DGI test. Per standardized testing she still remains at an increased risk for falls. She continues to demonstrates instability on stairs which makes her home bound without assistance. Continuation of skilled physical therapy services are indicated to address the deficits noted above, to continue progressing towards goals, to improve balance, and to minimize fall risk. Plan of Care Interventions Gait Training,Manual Therapy,Neuro Re-education, Patient/Caregiver Educati,Therapeutic Activities, Therapeutic Exercise PT Services Indicated Yes Treatment Frequency and 2x/wk for 8 visits Duration These treatments will address the objective and functional deficits as defined above. The patient will be advanced safely and appropriately in order for the patient to progress towards his/her prior level of function. Additional exercises will be introduced and as well as a comprehensive home exercise program upon discharge, if needed, ?to ensure carryover of functional gains achieved in the clinic. This treatment plan has been reviewed and agreement upon by the patient.
--- NOTE | 2023-08-16 12:44 | PCPTNOTE ---
pt cancelled due to not feeling well.
--- NOTE | 2023-08-23 12:27 | PCPTNOTE ---
Patient called to cancel due to repair man coming to house for heat issue.
--- NOTE | 2023-08-29 17:22 | PTOPDC ---
Assessment and note entered by Ananth Dawn, PT, DPT Evaluation Information Assessment Status Discharge Diagnosis MS, gait disturbances Onset 25 years Subjective Information Pt states she is feeling better, but states she still feels like there is room for improvement. She declines any falls but states she continues to be able to catch herself. Reported Pain Level Pain Score 0: Self Report Assessment PT Clinical Summary Sagrario presents to therapy today for her progress report following 20 visits to treat the symptoms her diagnosis of MS including gait disturbances. She continues to make small improvements from month to month but is not making the huge improvements like she would like. Discussed the benefits of community fitness classes outside of therapy to help maintain progress. Pt likes the idea of a maintenance program and taking a break from therapy for a while. She will therefore be discharged at this time. Plan of Care PT Services Indicated No
== END 2023-08-30 09:40 | disposition home or self-care (01) ==
LOC: ANHGOSHPT 12:30
PROVIDERS: PCP Family Medicine
DX: R26.89 Other abnormalities of gait and mobility (principal); G35 Multiple sclerosis
CPT/HCPCS: 97110; 97112; 97116; 97161; 97530; 97750

== ENCOUNTER 2024-03-29 14:26 | Outpatient (CLI) | payer OTHER, SELFPAY ==
--- NOTE | ~2024-03-29 | MM_ITS ---
EXAMINATION: MM screening feroz BI w skip HISTORY: Screening TECHNIQUE: Craniocaudal and mediolateral oblique 3-D tomosynthesis images were obtained and synthetic 2-D images were generated. CAD analysis was submitted and interpreted. COMPARISON: No prior mammogram is available for comparison at this institution. BREAST PARENCHYMAL COMPOSITION: There are scattered areas of fibroglandular density. FINDINGS: There is no evidence of suspicious mass, calcification, or architectural distortion to sugg est malignancy in either breast. There has been no suspicious interval change. IMPRESSION: 1. No mammographic evidence of malignancy. 2. Recommend routine screening mammography in one year. BI-RADS Category 1: Negative Reviewed, dictated and finalized at location B.
--- NOTE | ~2024-03-29 | DEXA_ITS ---
Bone Density Report Name: ROBIN VASQUEZ Age: 64 Sex: Female Ethnicity: White Date of : 1960 Indication: postmenopausal; screening for osteoporosis; hysterectomy; Referring Provider: OLIVER PALMA Study: Bone densitometry was performed. Exam Date: March 29, 2024 Accession number: [id number] Bone Density: Region BMD T-score Z-score Classification AP Spine(L1-L4) 1.057 0.1 1.6 Normal Femoral Neck (Left) 0.868 0.2 1.5 Normal Total Hip (Left) 1.059 1.0 2.0 Normal Femoral Neck (Right) 0.810 -0.3 1.0 Normal Total Hip (Right) 0.991 0.4 1.5 Normal Total Hip Mean 1.025 0.7 1.8 Normal World Health Organization criteria for BMD impression classify patients as: Normal (T-score at or above -1.0), Osteopenia (T-score between -1.0 and -2.5), or Osteoporosis (T-score at or below -2.5). 10-year Fracture Risk: FRAX not reported because: All T-scores for Spine Total, Hip Total, Femoral Neck at or above -1.0 Clinical Information Provided by Patient: Has used the following medications: Vitamin D Has the following medical conditions: Hysterectomy Patient maximum height was 66 No regular weight bearing exercise Drinks caffeinated beverages Onset of menses at age 15 Number of children 5 Impression: The patient has normal bone mass. Discussion: BONE DENSITY IS ABOVE THE MINIMUM DESIRABLE LEVEL AT ALL SKELETAL SITES TESTED. This patient?s bone mineral density is above the minimum desirable level (T-score -1.0 or better) at all sites measured. The patient should follow a healthful lifestyle (good nutrition with adequate calcium and vitamin D, and appropriate weight-bearing exercise). Follow-Up: Consider repeating this study in 5 years or sooner if there is some new clinical indication. Reported by: HENRY on 03/29/2024 3:07:00 PM. Reviewed, dictated and finalized at location [facility]
== END 2024-03-29 14:27 | disposition home or self-care (01) ==
LOC: ANHIMG 14:27
PROVIDERS: PCP Family Medicine; Visit Provider Physician Assistant Medical
DX: Z12.31 Encounter for screening mammogram for malignant neoplasm of breast (principal); Z78.0 Asymptomatic menopausal state
CPT/HCPCS: 77063; 77067; 77080

== ENCOUNTER 2024-08-15 13:29 | Outpatient (CLI) | payer OTHER, SELFPAY | END 2024-08-15 13:30 | disposition home or self-care (01) | LOC: ANHAUDASC 13:30 | PROVIDERS: PCP Family Medicine; Visit Provider Otolaryngology | DX: H90.3 Sensorineural hearing loss, bilateral (principal); G35 Multiple sclerosis | CPT/HCPCS: 92557; 92567 ==